=== PATIENT | female | born 1980 | race Caucasian/White ===

== ENCOUNTER → 2020-11-21 | Outpatient (CLI) | payer OTHER ==
[~2020-11-21] VITALS: Ht 158.8 cm; Wt 114.7 kg
[~2020-11-21] MED LIST: HYDR1TAB PO; METHOTREXATE 50 MG/2 ML PF IM ONE; METHOTREXATE 50 MG/2 ML PF IM SCH; birth control
[2020-11-21 12:00] VITALS: BP 149/78
[2020-11-21] MEDS: METHOTREXATE 50 MG/2 ML PF IM ONE ×2 (12:15)
== END ==
LOC: SDC 09:49
PROVIDERS: ATTEND Obstetrics & Gynecology
DX: O00.90 Unspecified ectopic pregnancy without intrauterine pregnancy (principal); Z3A.00 Weeks of gestation of pregnancy not specified
CPT/HCPCS: 96372

== ENCOUNTER 2020-11-28 08:52 | Outpatient (CLI) | payer OTHER ==
[~2020-11-28 08:52] MED LIST changes: -METHOTREXATE 50 MG/2 ML PF IM ONE; -METHOTREXATE 50 MG/2 ML PF IM SCH
[2020-11-28] MEDS ORDERED: METHOTREXATE 50 MG/2 ML PF IM ONE ×2 (08:58→09:15)
[2020-11-28 09:10] VITALS: BP 145/78
== END 2020-11-28 09:35 | disposition home or self-care (01) ==
LOC: SDC 08:52
PROVIDERS: ATTEND Obstetrics & Gynecology
DX: O00.90 Unspecified ectopic pregnancy without intrauterine pregnancy (principal); O02.81 Inappropriate change in quantitative human chorionic gonadotropin (hCG) in early pregnancy; Z3A.00 Weeks of gestation of pregnancy not specified
CPT/HCPCS: 96372

== ENCOUNTER → 2020-12-01 | Outpatient (CLI) | payer OTHER | LOC: LAB 09:21 | PROVIDERS: ATTEND Obstetrics & Gynecology | DX: O00.90 Unspecified ectopic pregnancy without intrauterine pregnancy (principal); Z3A.00 Weeks of gestation of pregnancy not specified | CPT/HCPCS: 36415; 84702 ==